=== PATIENT | female | born 2000 | race American Indian/Alaskan Native ===

== ENCOUNTER 2025-07-17 11:45 | Observation (INO) | payer SELFPAY ==
[2025-07-17 11:53] VITALS: BP 124/67; PULSE 89; RESP 18; TEMP 36.8; BMI 33.3
--- NOTE | 2025-07-17 12:09 | XR_ITS ---
Examination: Complete OB ultrasound greater than 14 weeks Date and time of exam: July, 1337 hours INDICATIONS: Months of vaginal bleeding today Findings: Viable intrauterine single fetus with single amniotic sac presentation cephalic Cardiac motion 145 bpm Placenta posterior grade 1 Umbilical cord insertion seen Amniotic fluid index 14.8 cm cervical length 4.2 cm Ovaries are not enlarged, arterial flow. Composite estimated gestational age based on BPD, head circumference, abdominal circumference, femur length is 19 weeks 6 days Estimated weight 331 g. Survey of intracranial anatomy, spinal anatomy, abdominal anatomy, four-chamber heart performed with no abnormalities identified. Impression: Viable intrauterine gestation in cephalic presentation.
--- NOTE | 2025-07-17 13:52 | XR_ITS ---
Examination: OB Transvaginal ultrasound of the pelvis, complete Technique: Transvaginal sonographic images pelvis performed using howell scale imaging Exam date and time: July 17, 2025, 1351 hours INDICATIONS: Onset of vaginal bleeding today FINDINGS: Cervix is closed, measuring 5.1 cm Placenta is posterior and low-lying, 0.3 cm from the internal os IMPRESSION: Low-lying placenta, 0.3 cm from the internal os.
== END 2025-07-17 15:00 | disposition home or self-care (01) ==
PROVIDERS: Admitting Provider Specialist; Visit Provider Specialist
DX: O46.92 Antepartum hemorrhage, unspecified, second trimester (principal); Z3A.20 20 weeks gestation of pregnancy
CPT/HCPCS: 59899; 76805; 76817